=== PATIENT | female | born 2000 | race American Indian/Alaskan Native ===

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

== ENCOUNTER 2019-05-16 10:53 | Emergency (ER) | payer SELFPAY ==
[2019-05-16 11:05] VITALS: BP 116/86
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
== END 2019-05-16 11:43 | disposition left against medical advice (07) ==
LOC: ED 10:53
DX: F41.1 Generalized anxiety disorder (principal); F17.200 Nicotine dependence, unspecified, uncomplicated; Z79.899 Other long term (current) drug therapy
CPT/HCPCS: 93005; 93010; 99282